=== PATIENT | male | born 1965 | race Caucasian/White ===

== ENCOUNTER 2020-04-09 22:39 | Inpatient (IN) | payer BC ==
[2020-04-09] VITALS (8 sets, daily range): BP systolic 143–189; BP diastolic 84–114
[~2020-04-09] VITALS: Ht 170.1 cm; Wt 80.9 kg
--- NOTE | 2020-04-09 23:04 | NUR ---
NURSE TO NURSE REPORT CODI OSORIO.
[2020-04-09 23:24] LABS: BASO # 0.1 10*3/uL (0.0-0.1); BASO % 0.9 % (0.0-1.0); EOS % 0.3 % (1.0-4.0); HEMATOCRIT 43.5 % (42.0-52.0); LYMPH % 15.3 % (27.0-41.0); MEAN CORPUSCULAR HGB 27.3 pg (27.0-31.0); MEAN CORPUSCULAR HGB CONC 35.9 g/dl (33.0-37.0); MEAN PLATELET VOLUME 9.7 fl (9.6-12.3); MONO # 0.4 10*3/uL (0.1-1.0); MONO % 6.4 % (3.0-9.0); NEUT # 4.9 10*3/uL (2.3-7.9); NEUT % 76.5 % (47.0-73.0); PLATELET COUNT AUTOMATED 231 10*3/uL (130-400); RED BLOOD COUNT 5.72 10*6/uL (4.50-5.90); RED CELL DISTRI WIDTH 11.8 % (0-14.5); WHITE BLOOD COUNT 6.4 10*3/uL (4.8-10.8)
[2020-04-09 23:39] LABS: ALBUMIN 3.2 gm/dl (3.1-4.5); ALKALINE PHOSPHATASE 74 U/L (45-117); BUN 21 mg/dl (7-24); CHLORIDE 100 mmol/L (98-107); CREATININE 1.32 mg/dL (0.70-1.30); LIPASE 945 U/L (73-393); POTASSIUM 4.1 mmol/L (3.5-5.1); SGOT/AST 28 IU/L (3-35); SGPT/ALT 49 U/L (12-78); SODIUM 133 mmol/L (136-145); TOTAL PROTEIN 7.1 gm/dL (6.4-8.2)
[2020-04-09 23:43] LABS: TROPONIN I < 0.015 ng/ml (<0.045)
[2020-04-10 00:05] LABS: BILIRUBIN NEGATIVE (NEGATIVE); BLOOD TRACE-INTACT (NEGATIVE); CLARITY CLEAR (CLEAR); COLOR YELLOW (YELLOW); GLUCOSE 3+ (NEGATIVE); KETONE NEGATIVE (NEGATIVE); LEUKO ESTERASE NEGATIVE (NEGATIVE); NITRITE NEGATIVE (NEGATIVE); SPECIFIC GRAVITY 1.015 (1.005-1.030); UROBILINOGEN 0.2 E.U./dl (0.2-1.0)
[2020-04-10 00:22] LABS: WBC 0-2 wbc/hpf (0-5)
[2020-04-10 00:25] VITALS: BP 152/88; BP 163/95
--- NOTE | 2020-04-10 00:25 | NUR ---
A 54, admitted to 5E, under the services of SHAAN Gonzalez DO with a diagnosis of HYPEROSMOLAR NON-KETOTIC STATE D/T TYPE 2 DIABETES, UNCONTROLLED HTN, CHRONIC PANCREATITIS. Chief complaint is NAUSEA/VOMITING/DIARRHEA, HYPERGLYCEMIA. Patient arrived via ambulatory from ER. Monitor applied. Initial assessment completed. Vital signs taken and recorded. SHAAN GONZALEZ DO notified of admission to the unit. Orders received. See assessment for past medical history, medications and allergies. Patient and/or family oriented to unit. [facility] visitation policy reviewed. Clothing/patient valuable form completed. MAVERICK SPAIN
[2020-04-10] MEDS ORDERED: ASPIRIN LITE C325 MG PO (00:44)
--- NOTE | 2020-04-10 00:45 | NUR ---
MED REC UP TO DATE PER PT RECALL.
--- NOTE | 2020-04-10 01:02 | NUR ---
IV MORPHINE ADMINISTERED PER PRN ORDER FOR C/O PAIN IN R SIDE ABDOMEN RATED 8/10. BSG ALSO CHECKED AT 0110-501. IV FLUID BOLUS INFUSING AT THIS TIME WITH APPROXIMATELY 800 CCs LEFT. WILL REEVALUATE WHEN BOLUS COMPLETE.
--- NOTE | 2020-04-10 01:37 | NUR ---
PT STATES EARLIER PAIN MEDICATION SOMEWHAT EFFECTIVE. RATES PAIN 6/10. WILL CONTINUE TO MONITOR. ORAL CONTRAST PROVIDED FOR CT SCAN ORDERED.
--- NOTE | 2020-04-10 02:34 | NUR ---
NOTIFIED OF BSG 476 FOLLOWING BOLUS ORDERED IN ER. INSTRUCTED TO GIVE SLIDING SCALE COVERAGE NON-SCHEDULED DOSE.
--- NOTE | 2020-04-10 02:43 | NUR ---
22 UNITS GIVEN PER SLIDING SCALE FOR BSG 476. PER [facility], PT TO HAVE TEST DONE AT 0300. WILL SEND PT TO CT AT THIS TIME.
--- NOTE | 2020-04-10 03:02 | NUR ---
PT TAKEN OFF FLOOR VIA WC FOR CT.
--- NOTE | 2020-04-10 03:15 | NUR ---
PT RETURNED TO FLOOR FROM CT. REQUESTED AND RECEIVED PO NORCO WITH SMALL SIPS OF WATER FOR C/O PAIN IN R ABDOMEN RATED 7/10. WILL MONITOR EFFECTIVENESS. CALL LIGHT IN REACH.
--- NOTE | 2020-04-10 03:15 | NUR ---
PT RETURNED TO FLOOR FROM CT. REQUESTED AND RECEIVED PO NORCO FOR C/O PAIN IN R ABDOMEN RATED 7/10. WILL MONITOR EFFECTIVENESS. CALL LIGHT IN REACH.
--- NOTE | 2020-04-10 04:10 | NUR ---
EARLIER MEDICATION APPEARS EFFECTIVE. PT ASLEEP IN BED. NO S/S OF DISTRESS NOTED. WILL MONITOR. CALL LIGHT IN REACH.
[2020-04-10 05:56] LABS: BASO % 0.5 % (0.0-1.0); EOS % 0.1 % (1.0-4.0); HEMATOCRIT 42.4 % (42.0-52.0); LYMPH # 1.3 10*3/uL (1.3-4.4); LYMPH % 15.3 % (27.0-41.0); MEAN CELL VOLUME 78.1 fl (80.0-94.0); MEAN CORPUSCULAR HGB 26.9 pg (27.0-31.0); MEAN CORPUSCULAR HGB CONC 34.4 g/dl (33.0-37.0); MONO # 0.6 10*3/uL (0.1-1.0); MONO % 6.3 % (3.0-9.0); NEUT # 6.7 10*3/uL (2.3-7.9); NEUT % 76.8 % (47.0-73.0); PLATELET COUNT AUTOMATED 234 10*3/uL (130-400); RED BLOOD COUNT 5.43 10*6/uL (4.50-5.90); RED CELL DISTRI WIDTH 11.9 % (0-14.5); WHITE BLOOD COUNT 8.7 10*3/uL (4.8-10.8)
[2020-04-10 06:00] LABS: BUN 18 mg/dl (7-24); CHLORIDE 104 mmol/L (98-107); CHOLESTEROL 286 mg/dL (<200); CREATININE 1.29 mg/dL (0.70-1.30); LIPASE 326 U/L (73-393); POTASSIUM 3.7 mmol/L (3.5-5.1); SODIUM 137 mmol/L (136-145); TRIGLYCERIDES 372 mg/dl (<150); VLDL CHOLESTEROL 74 mg/dL (6-40)
[2020-04-10 06:09] LABS: HDL CHOLESTEROL 48 mg/dl (40-60); LDL CHOLESTEROL 164 mg/dL (9-159); THYROID STIM HORMONE (HS) 0.751 uIU/ml (0.358-4.75)
[2020-04-10 06:53] LABS: VITAMIN D, 25-HYDROXY 21.8 ng/mL (30-100)
--- NOTE | 2020-04-10 07:29 | NUR ---
AWARE OF CT RESULTS.
--- NOTE | 2020-04-10 11:52 | NUR ---
Wrapper Layer And Examiner Soft Work in to talk to patient. Patient states lives at HOME with . There are 4 steps in the home. Physician: NONE AT THIS TIME Pharmacy: [facility] Home health services: NONE Patient's level of ADLs: INDEPENDENT Patient has working utilities: YES DME: NONE Follow-up physician's appointment after d/c: WILL BE MADE BY HOSPITALIST NURSE DIRECTOR ON DISCHARGE Does patient want to access PORTAL?: NO Discharge plan PT LIVES AT HOME AND IS INDEPENDENT IN HIS CARE. DENIES HE WILL HAVE ANY NEEDS AT DISCHARGE. PT CURRENTLY DOES NOT HAVE A PCP. INTERESTED IN [facility]. HOSPITALIST NURSE DIRECTOR INFORMED. PT HAS NOT BEEN TAKING ANY MEDS AT HOME DUE TO NO PCP TO FILL THEM. PLAN IS TO RETURN HOME WHEN MEDICALLY STABLE. STATES HIS WILL TAKE HIM HOME. WILL CONTINUE TO FOLLOW.. DIPESH JIMENEZ
[2020-04-10 12:00] VITALS: BP 136/90
[2020-04-10 16:00] VITALS: BP 133/94
[2020-04-10 20:00] VITALS: BP 152/89
[2020-04-11] VITALS (9 sets, daily range): BP systolic 85–158; BP diastolic 49–96
--- NOTE | 2020-04-11 04:07 | NUR ---
PT REQUESTED AND RECEIVED PO NORCO PER PRN ORDER FOR C/O PAIN IN R SIDE ABDOMEN RATED 7/10. WILL MONITOR EFFECTIVENESS. CALL LIGHT IN REACH.
--- NOTE | 2020-04-11 04:55 | NUR ---
EARLIER MEDICATION EFFECTIVE PER PT. WILL MONITOR. CALL LIGHT IN REACH.
[2020-04-11 06:52] LABS: BASO % 0.3 % (0.0-1.0); EOS # 0.1 10*3/uL (0.0-0.4); EOS % 1.1 % (1.0-4.0); HEMATOCRIT 38.4 % (42.0-52.0); LYMPH # 1.7 10*3/uL (1.3-4.4); LYMPH % 26.3 % (27.0-41.0); MEAN CELL VOLUME 79.3 fl (80.0-94.0); MEAN CORPUSCULAR HGB 27.3 pg (27.0-31.0); MEAN CORPUSCULAR HGB CONC 34.4 g/dl (33.0-37.0); MONO # 0.6 10*3/uL (0.1-1.0); MONO % 9.2 % (3.0-9.0); NEUT # 3.9 10*3/uL (2.3-7.9); NEUT % 62.8 % (47.0-73.0); PLATELET COUNT AUTOMATED 206 10*3/uL (130-400); RED BLOOD COUNT 4.84 10*6/uL (4.50-5.90); RED CELL DISTRI WIDTH 12.1 % (0-14.5); WHITE BLOOD COUNT 6.3 10*3/uL (4.8-10.8)
[2020-04-11 07:09] LABS: ALBUMIN 2.3 gm/dl (3.1-4.5); ALKALINE PHOSPHATASE 57 U/L (45-117); BUN 12 mg/dl (7-24); CHLORIDE 107 mmol/L (98-107); CREATININE 0.85 mg/dL (0.70-1.30); POTASSIUM 3.6 mmol/L (3.5-5.1); SGOT/AST 16 IU/L (3-35); SGPT/ALT 32 U/L (12-78); SODIUM 138 mmol/L (136-145); TOTAL PROTEIN 5.3 gm/dL (6.4-8.2)
[2020-04-11 07:12] LABS: CEA 6.8 ng/mL
--- NOTE | 2020-04-11 07:24 | NUR ---
GLUCOSE 218 ON AM LABS. BESIDE GLUCOSE NOT PREFORMED FOR THIS REASON.
--- NOTE | 2020-04-11 11:09 | NUR ---
BLOOD SUGAR NOT PERFORMED PT IS IN SURGERY.
--- NOTE | 2020-04-11 11:21 | NUR ---
PT CONTINUES TO DENY NEEDS WHEN DISCHARGED. WILL RETURN HOME WHEN MEDICALLY STABLE. WILL CONTINUE TO FOLLOW.
--- NOTE | 2020-04-11 11:36 | NUR ---
PATIENT GIVEN WIPES FOR ABDOMEN, SCD APPLIED
--- NOTE | 2020-04-11 17:40 | NUR ---
PT AWARE OF NEED TO STRAIN URINE. URINAL PROVIDED.
--- NOTE | 2020-04-11 19:38 | NUR ---
PATIENT RESTING IN BED WITH NO NEEDS MADE. DENIES PAIN. BED IN LOWEST POSITION, CALL LIGHT IN REACH
--- NOTE | 2020-04-11 23:45 | NUR ---
24 HR chart check completed.
[2020-04-12] VITALS: BP 134/75
--- NOTE | 2020-04-12 01:32 | NUR ---
PRN NORCO GIVEN FOR PT COMPLAINTS OF RIGHT SIDED ABDOMINAL PAIN RATING IT 7/10. CALL LIGHT WITHIN REACH, WILL MONITOR
[2020-04-12 05:54] LABS: BASO % 0.6 % (0.0-1.0); EOS # 0.1 10*3/uL (0.0-0.4); EOS % 1.8 % (1.0-4.0); HEMATOCRIT 37.8 % (42.0-52.0); LYMPH % 38.3 % (27.0-41.0); MEAN CELL VOLUME 80.4 fl (80.0-94.0); MEAN CORPUSCULAR HGB 27.2 pg (27.0-31.0); MEAN CORPUSCULAR HGB CONC 33.9 g/dl (33.0-37.0); MEAN PLATELET VOLUME 9.8 fl (9.6-12.3); MONO # 0.5 10*3/uL (0.1-1.0); MONO % 9.6 % (3.0-9.0); NEUT # 2.5 10*3/uL (2.3-7.9); NEUT % 49.1 % (47.0-73.0); PLATELET COUNT AUTOMATED 184 10*3/uL (130-400); RED CELL DISTRI WIDTH 11.9 % (0-14.5); WHITE BLOOD COUNT 5.1 10*3/uL (4.8-10.8)
[2020-04-12 06:23] LABS: BUN 14 mg/dl (7-24); CHLORIDE 106 mmol/L (98-107); CREATININE 0.74 mg/dL (0.70-1.30); LIPASE 183 U/L (73-393); POTASSIUM 3.5 mmol/L (3.5-5.1); SODIUM 137 mmol/L (136-145)
[2020-04-12 08:00] VITALS: BP 131/79
[2020-04-12] MEDS ORDERED: Lantus SC (10:21)
[2020-04-12] MEDS ORDERED: ASPIRIN ADULT L81 M1 PO (10:21)
[2020-04-12] MEDS ORDERED: GLUCOPHAGE500 M1 PO (10:21)
[2020-04-12] MEDS ORDERED: ATORVASTATIN CA20 M1 PO (10:21)
[2020-04-12] MEDS ORDERED: PANTOPRAZOLE SO40 MG PO (10:21)
[2020-04-12] MEDS ORDERED: Humalog SQ (10:21)
[2020-04-12] MEDS ORDERED: TAMSULOSIN HCL0.4 MG PO (10:21)
[2020-04-12] MEDS ORDERED: VITAMIN D350 MC2 PO (10:21)
--- NOTE | 2020-04-12 11:07 | NUR ---
Nutritional Support Services Note: Pt instructed on an 1800cal diabetic diet. Diet copy given to pt. Pt has been a diabetic for approximately 15 years. Has never complied with a diet. Eats candy bars and regular pop on a daily basis. Goes for long periods of time without eating. Stressed importance of three meals daily and a night snack. Encouraged healthy eating. Reviewed proper portion sizes and discussed risks of DM. Pt states he will give diet copy to his to help him. Encouraged follow up if needed. Beth Hardy Rdn Ld
[2020-04-12 12:00] VITALS: BP 135/93
--- NOTE | 2020-04-12 12:12 | NUR ---
CONTINUES TO DENY NEEDS ON DISCHARGE. WILL BE DISCHARGED TO HOME WHEN MEDICALLY STABLE. WILL CONTINUE TO FOLLOW
--- NOTE | 2020-04-12 13:00 | NUR ---
MASKS PROVIDED TO PATIENT TO WEAR TO FOLLOW UP CARE APPTS PER REQUEST FROM JEROMY THE HOSPITALIST NURSE.
--- NOTE | 2020-04-12 14:49 | NUR ---
PT DISCHARGED HOME AT THIS TIME. [place] REMOVED. FOLLOW UP CARE AND DISCHARGE INSTRUCTIONS DISCUSSED.
== END 2020-04-12 14:49 | disposition home or self-care (01) | DRG 438 ==
LOC: ED 22:39 → 5E 23:57 → EDHOLD 23:57 → 5E 04-10 00:13
PROVIDERS: Emergency Medicine; Internal Medicine; Student in an Organized Health Care Education/Training Program; ADMIT Internal Medicine
PROC: 0DB68ZX Excision of Stomach, Via Natural or Artificial Opening Endoscopic, Diagnostic (ICD-10-PCS; principal; 2020-04-11)
PROC: 0DB48ZX Excision of Esophagogastric Junction, Via Natural or Artificial Opening Endoscopic, Diagnostic (ICD-10-PCS; principal; 2020-04-11)
DX: K85.90 Acute pancreatitis without necrosis or infection, unspecified (principal); E11.00 Type 2 diabetes mellitus with hyperosmolarity without nonketotic hyperglycemic-hyperosmolar coma (NKHHC); E43 Unspecified severe protein-calorie malnutrition; N13.2 Hydronephrosis with renal and ureteral calculous obstruction; J98.11 Atelectasis; D18.09 Hemangioma of other sites; K86.1 Other chronic pancreatitis; N28.89 Other specified disorders of kidney and ureter; K44.9 Diaphragmatic hernia without obstruction or gangrene; I10 Essential (primary) hypertension; K21.0 Gastro-esophageal reflux disease with esophagitis; E78.1 Pure hyperglyceridemia; I25.10 Atherosclerotic heart disease of native coronary artery without angina pectoris; E78.5 Hyperlipidemia, unspecified; R00.0 Tachycardia, unspecified; D50.9 Iron deficiency anemia, unspecified; E11.65 Type 2 diabetes mellitus with hyperglycemia; Z91.19 Patient's noncompliance with other medical treatment and regimen; Z82.49 Family history of ischemic heart disease and other diseases of the circulatory system; Z68.27 Body mass index [BMI] 27.0-27.9, adult

== ENCOUNTER → 2020-04-19 | Outpatient (CLI) | payer BC ==
[~2020-04-19] MED LIST: ASPIRIN ADULT L81 M1 PO; ASPIRIN LITE C325 MG PO; ATORVASTATIN CA20 M1 PO; GLUCOPHAGE500 M1 PO; Humalog SQ; Lantus SC; PANTOPRAZOLE SO40 MG PO; TAMSULOSIN HCL0.4 MG PO; VITAMIN D350 MC2 PO
== END | disposition home or self-care (01) ==
LOC: RESCLI 00:27
DX: I10 Essential (primary) hypertension (principal); E11.65 Type 2 diabetes mellitus with hyperglycemia; K86.1 Other chronic pancreatitis; K44.9 Diaphragmatic hernia without obstruction or gangrene; E55.9 Vitamin D deficiency, unspecified; R42 Dizziness and giddiness; E78.5 Hyperlipidemia, unspecified; Z09 Encounter for follow-up examination after completed treatment for conditions other than malignant neoplasm; Z79.4 Long term (current) use of insulin; Z79.84 Long term (current) use of oral hypoglycemic drugs; Z79.899 Other long term (current) drug therapy; Z98.890 Other specified postprocedural states; Z87.891 Personal history of nicotine dependence

== ENCOUNTER → 2020-04-28 | Outpatient (CLI) | payer BC ==
[2020-04-28 15:10] LABS: ACT PARTIAL THROMBO TIME 25.1 SECONDS (20.0-32.1)
== END | disposition home or self-care (01) ==
LOC: LAB 14:17
PROVIDERS: Urology
DX: D40.0 Neoplasm of uncertain behavior of prostate (principal); N28.89 Other specified disorders of kidney and ureter

== ENCOUNTER → 2020-05-31 | Outpatient (CLI) | payer BC ==
[2020-05-31 17:01] LABS: BASO # 0.1 10*3/uL (0.0-0.1); BASO % 0.7 % (0.0-1.0); EOS # 0.1 10*3/uL (0.0-0.4); EOS % 1.5 % (1.0-4.0); HEMATOCRIT 44.1 % (42.0-52.0); LYMPH # 1.9 10*3/uL (1.3-4.4); LYMPH % 25.9 % (27.0-41.0); MEAN CELL VOLUME 78.8 fl (80.0-94.0); MEAN CORPUSCULAR HGB 26.8 pg (27.0-31.0); MEAN PLATELET VOLUME 9.3 fl (9.6-12.3); MONO # 0.5 10*3/uL (0.1-1.0); MONO % 6.4 % (3.0-9.0); NEUT # 4.7 10*3/uL (2.3-7.9); NEUT % 64.9 % (47.0-73.0); PLATELET COUNT AUTOMATED 281 10*3/uL (130-400); RED CELL DISTRI WIDTH 12.1 % (0-14.5); WHITE BLOOD COUNT 7.2 10*3/uL (4.8-10.8)
[2020-05-31 17:15] LABS: ALBUMIN 3.3 gm/dl (3.1-4.5); ALKALINE PHOSPHATASE 60 U/L (45-117); BUN 14 mg/dl (7-24); CHLORIDE 107 mmol/L (98-107); SGOT/AST 14 IU/L (3-35); SGPT/ALT 27 U/L (12-78); SODIUM 137 mmol/L (136-145); TOTAL PROTEIN 7.4 gm/dL (6.4-8.2)
[2020-05-31 17:19] LABS: BILIRUBIN, DIRECT 0.2 mg/dL (0.0-0.2); CEA 3.3 ng/mL
[2020-06-01 08:08] LABS: AFP TUMOR MARKER 1.3 ng/mL (0.0-8.3); HEP B CORE AB, IGM Negative (Negative); HEPATITIS B SURFACE AG Negative (Negative); HEPATITIS C VIRUS ANTIBODY <0.1 s/co (0.0-0.9)
[2020-06-01 09:10] LABS: CA 19-9 27 U/mL (0-35)
== END | disposition home or self-care (01) ==
LOC: LAB 16:45
PROVIDERS: Internal Medicine Gastroenterology
DX: R93.89 Abnormal findings on diagnostic imaging of other specified body structures (principal)

== ENCOUNTER → 2020-06-20 | Outpatient (CLI) | payer BC ==
[2020-06-20 12:04] LABS: IRON 73 ug/dL (65-175); TOTAL IRON BINDING CAPACITY 299 ug/dl (250-450)
[2020-06-20 12:33] LABS: FERRITIN 124.8 ng/mL (22.0-322.0)
== END ==
LOC: LAB 10:55
PROVIDERS: Internal Medicine Gastroenterology
DX: R63.4 Abnormal weight loss (principal); R10.9 Unspecified abdominal pain

== ENCOUNTER → 2021-02-07 | Outpatient (CLI) | payer BC ==
[2021-02-07 08:38] LABS: ALBUMIN 3.3 gm/dl (3.1-4.5); BUN 18 mg/dl (7-24); CHLORIDE 102 mmol/L (98-107); POTASSIUM 4.7 mmol/L (3.5-5.1); SODIUM 135 mmol/L (136-145)
[2021-02-07 08:41] LABS: ALKALINE PHOSPHATASE 61 U/L (45-117); CHOLESTEROL 248 mg/dL (<200); CREATININE 0.98 mg/dL (0.70-1.30); HDL CHOLESTEROL 55 mg/dl (40-60); SGOT/AST 12 IU/L (3-35); SGPT/ALT 28 U/L (12-78); TOTAL PROTEIN 7.4 gm/dL (6.4-8.2); TRIGLYCERIDES 416 mg/dl (<150)
[2021-02-07 08:55] LABS: VITAMIN D, 25-HYDROXY 29.1 ng/mL (30-100)
[2021-02-08 10:08] LABS: CREATININE,URINE 217.6 mg/dL (Not Estab.)
== END | disposition home or self-care (01) ==
LOC: LAB 07:34
PROVIDERS: ATTEND Internal Medicine Endocrinology, Diabetes & Metabolism
DX: E11.65 Type 2 diabetes mellitus with hyperglycemia (principal); E55.9 Vitamin D deficiency, unspecified; G62.9 Polyneuropathy, unspecified

== ENCOUNTER → 2021-04-17 | Outpatient (CLI) | payer BC | END | disposition home or self-care (01) | LOC: RESCLI 00:55 | PROVIDERS: ATTEND Family Medicine | DX: E11.65 Type 2 diabetes mellitus with hyperglycemia (principal); E11.40 Type 2 diabetes mellitus with diabetic neuropathy, unspecified; E78.2 Mixed hyperlipidemia; I10 Essential (primary) hypertension; E55.9 Vitamin D deficiency, unspecified; Z79.82 Long term (current) use of aspirin; Z79.84 Long term (current) use of oral hypoglycemic drugs; Z79.899 Other long term (current) drug therapy; Z72.0 Tobacco use ==

== ENCOUNTER → 2021-10-02 | Outpatient (CLI) | payer BC ==
[2021-10-02 12:09] LABS: BASO % 0.6 % (0.0-1.0); EOS # 0.1 10*3/uL (0.0-0.4); EOS % 0.9 % (1.0-4.0); HEMATOCRIT 46.5 % (42.0-52.0); LYMPH # 1.5 10*3/uL (1.3-4.4); LYMPH % 22.9 % (27.0-41.0); MEAN CELL VOLUME 81.3 fl (80.0-94.0); MEAN CORPUSCULAR HGB 26.9 pg (27.0-31.0); MEAN CORPUSCULAR HGB CONC 33.1 g/dl (33.0-37.0); MEAN PLATELET VOLUME 9.6 fl (9.6-12.3); MONO # 0.5 10*3/uL (0.1-1.0); MONO % 7.3 % (3.0-9.0); NEUT # 4.5 10*3/uL (2.3-7.9); PLATELET COUNT AUTOMATED 213 10*3/uL (130-400); RED BLOOD COUNT 5.72 10*6/uL (4.50-5.90); RED CELL DISTRI WIDTH 12.4 % (0-14.5); WHITE BLOOD COUNT 6.6 10*3/uL (4.8-10.8)
[2021-10-02 12:15] LABS: BILIRUBIN Negative (Negative); BLOOD Trace-Intact (Negative); CLARITY Clear (Clear); COLOR Yellow (Yellow); GLUCOSE 3+ (Negative); KETONE Negative (Negative); LEUKO ESTERASE Negative (Negative); NITRITE Negative (Negative); SPECIFIC GRAVITY >= 1.030 (1.001-1.030); UROBILINOGEN 0.2 E.U./dl (0.0-1.0)
[2021-10-02 12:25] LABS: ALBUMIN 3.3 gm/dl (3.1-4.5); BUN 20 mg/dl (7-24); CHLORIDE 106 mmol/L (98-107); CREATININE 1.13 mg/dL (0.70-1.30); IRON 74 ug/dL (65-175); POTASSIUM 4.4 mmol/L (3.5-5.1); SODIUM 138 mmol/L (136-145); TOTAL IRON BINDING CAPACITY 312 ug/dl (250-450)
[2021-10-02 12:28] LABS: URINE CREATININE RANDOM 40.3 mg/dL
[2021-10-02 13:17] LABS: FERRITIN 105.4 ng/mL (22.0-322.0); VITAMIN D, 25-HYDROXY 39.4 ng/mL (30-100)
[2021-10-02 13:18] LABS: PTH INTACT 24.5 pg/mL (18.5-88.0)
[2021-10-02 14:22] LABS: BACTERIA TRACE; WBC 0-2 wbc/hpf (0-5)
== END | disposition home or self-care (01) ==
LOC: LAB 11:38
PROVIDERS: ATTEND Internal Medicine Nephrology
DX: E11.21 Type 2 diabetes mellitus with diabetic nephropathy (principal); E11.22 Type 2 diabetes mellitus with diabetic chronic kidney disease; N18.2 Chronic kidney disease, stage 2 (mild); D63.1 Anemia in chronic kidney disease; N25.81 Secondary hyperparathyroidism of renal origin

== ENCOUNTER → 2021-12-05 | Outpatient (CLI) | payer BC ==
[2021-12-05 10:47] LABS: BASO # 0.1 10*3/uL (0.0-0.1); BASO % 0.8 % (0.0-1.0); EOS % 0.6 % (1.0-4.0); HEMATOCRIT 47.5 % (42.0-52.0); LYMPH # 1.5 10*3/uL (1.3-4.4); LYMPH % 24.5 % (27.0-41.0); MEAN CELL VOLUME 81.3 fl (80.0-94.0); MEAN CORPUSCULAR HGB 27.1 pg (27.0-31.0); MEAN CORPUSCULAR HGB CONC 33.3 g/dl (33.0-37.0); MONO # 0.4 10*3/uL (0.1-1.0); MONO % 6.5 % (3.0-9.0); NEUT # 4.1 10*3/uL (2.3-7.9); PLATELET COUNT AUTOMATED 209 10*3/uL (130-400); RED BLOOD COUNT 5.84 10*6/uL (4.50-5.90); RED CELL DISTRI WIDTH 12.6 % (0-14.5); WHITE BLOOD COUNT 6.2 10*3/uL (4.8-10.8)
[2021-12-05 10:52] LABS: BILIRUBIN Negative (Negative); BLOOD Negative (Negative); CLARITY Clear (Clear); COLOR Yellow (Yellow); GLUCOSE 3+ (Negative); KETONE Negative (Negative); LEUKO ESTERASE Negative (Negative); NITRITE Negative (Negative); SPECIFIC GRAVITY >= 1.030 (1.001-1.030); UROBILINOGEN 0.2 E.U./dl (0.0-1.0)
[2021-12-05 10:59] LABS: URINE CREATININE RANDOM 64.7 mg/dL
[2021-12-05 11:03] LABS: ALBUMIN 3.7 gm/dl (3.1-4.5); BUN 33 mg/dl (7-24); CHLORIDE 100 mmol/L (98-107); CREATININE 1.38 mg/dL (0.70-1.30); IRON 102 ug/dL (65-175); POTASSIUM 4.5 mmol/L (3.5-5.1); SODIUM 135 mmol/L (136-145); TOTAL IRON BINDING CAPACITY 319 ug/dl (250-450)
[2021-12-05 11:49] LABS: FERRITIN 162.6 ng/mL (22.0-322.0)
[2021-12-05 12:25] LABS: VITAMIN D, 25-HYDROXY 48.1 ng/mL (30-100)
[2021-12-05 12:43] LABS: EPITHELIAL CELLS 0-2; WBC 0-2 wbc/hpf (0-5)
== END | disposition home or self-care (01) ==
LOC: LAB 10:21
PROVIDERS: ATTEND Internal Medicine Nephrology
DX: E11.21 Type 2 diabetes mellitus with diabetic nephropathy (principal); N18.2 Chronic kidney disease, stage 2 (mild); D63.1 Anemia in chronic kidney disease; N25.81 Secondary hyperparathyroidism of renal origin

== ENCOUNTER → 2021-12-11 | Outpatient (CLI) | payer BC | END | disposition home or self-care (01) | LOC: RESCLI 01:32 | PROVIDERS: ATTEND Student in an Organized Health Care Education/Training Program | DX: E11.65 Type 2 diabetes mellitus with hyperglycemia (principal); E11.40 Type 2 diabetes mellitus with diabetic neuropathy, unspecified; I10 Essential (primary) hypertension; E55.9 Vitamin D deficiency, unspecified; E78.5 Hyperlipidemia, unspecified; I25.10 Atherosclerotic heart disease of native coronary artery without angina pectoris; Z79.82 Long term (current) use of aspirin; Z79.84 Long term (current) use of oral hypoglycemic drugs; Z79.899 Other long term (current) drug therapy; Z98.890 Other specified postprocedural states ==

== ENCOUNTER → 2021-12-12 | Outpatient (CLI) | payer BC ==
[2021-12-12 08:25] LABS: BASO # 0.1 10*3/uL (0.0-0.1); BASO % 0.6 % (0.0-1.0); EOS # 0.1 10*3/uL (0.0-0.4); EOS % 0.7 % (1.0-4.0); HEMATOCRIT 44.5 % (42.0-52.0); LYMPH # 1.4 10*3/uL (1.3-4.4); LYMPH % 16.9 % (27.0-41.0); MEAN CORPUSCULAR HGB 27.2 pg (27.0-31.0); MEAN CORPUSCULAR HGB CONC 33.9 g/dl (33.0-37.0); MEAN PLATELET VOLUME 9.6 fl (9.6-12.3); MONO # 0.8 10*3/uL (0.1-1.0); MONO % 9.4 % (3.0-9.0); NEUT % 71.9 % (47.0-73.0); PLATELET COUNT AUTOMATED 183 10*3/uL (130-400); RED BLOOD COUNT 5.56 10*6/uL (4.50-5.90); RED CELL DISTRI WIDTH 12.5 % (0-14.5); WHITE BLOOD COUNT 8.3 10*3/uL (4.8-10.8)
[2021-12-12 08:40] LABS: ALBUMIN 3.6 gm/dl (3.1-4.5); ALKALINE PHOSPHATASE 60 U/L (45-117); BUN 20 mg/dl (7-24); CHLORIDE 103 mmol/L (98-107); CHOLESTEROL 172 mg/dL (<200); LDL CHOLESTEROL 60 mg/dL (9-159); POTASSIUM 4.2 mmol/L (3.5-5.1); SGOT/AST 16 IU/L (3-35); SGPT/ALT 34 U/L (12-78); SODIUM 137 mmol/L (136-145); TOTAL PROTEIN 7.5 gm/dL (6.4-8.2); TRIGLYCERIDES 307 mg/dl (<150)
== END | disposition home or self-care (01) ==
LOC: RAD 07:56
PROVIDERS: Hospitalist; ATTEND Student in an Organized Health Care Education/Training Program
DX: E11.65 Type 2 diabetes mellitus with hyperglycemia (principal)

== ENCOUNTER → 2022-02-11 | Outpatient (CLI) | payer BC | END | disposition home or self-care (01) | LOC: US 09:10 | PROVIDERS: ATTEND Urology | DX: N28.1 Cyst of kidney, acquired (principal); R33.9 Retention of urine, unspecified ==

== ENCOUNTER → 2022-02-12 | Outpatient (CLI) | payer BC | END | disposition home or self-care (01) | LOC: RESCLI 00:30 | PROVIDERS: ATTEND Internal Medicine | DX: E11.65 Type 2 diabetes mellitus with hyperglycemia (principal); E55.9 Vitamin D deficiency, unspecified; E78.5 Hyperlipidemia, unspecified; I25.10 Atherosclerotic heart disease of native coronary artery without angina pectoris; G62.9 Polyneuropathy, unspecified; I11.9 Hypertensive heart disease without heart failure; Z79.4 Long term (current) use of insulin; Z79.899 Other long term (current) drug therapy; Z79.82 Long term (current) use of aspirin ==

== ENCOUNTER → 2023-02-03 | Outpatient (CLI) | payer BC ==
[2023-02-03 15:44] LABS: BASO # 0.1 10*3/uL (0.0-0.1); BASO % 0.8 % (0.0-1.0); EOS # 0.1 10*3/uL (0.0-0.4); EOS % 1.1 % (1.0-4.0); HEMATOCRIT 49.3 % (42.0-52.0); LYMPH # 1.5 10*3/uL (1.3-4.4); LYMPH % 24.4 % (27.0-41.0); MEAN CELL VOLUME 79.8 fl (80.0-94.0); MEAN CORPUSCULAR HGB 27.2 pg (27.0-31.0); MEAN CORPUSCULAR HGB CONC 34.1 g/dl (33.0-37.0); MEAN PLATELET VOLUME 9.2 fl (9.6-12.3); MONO # 0.5 10*3/uL (0.1-1.0); MONO % 7.5 % (3.0-9.0); NEUT # 4.1 10*3/uL (2.3-7.9); NEUT % 65.1 % (47.0-73.0); PLATELET COUNT AUTOMATED 237 10*3/uL (130-400); RED BLOOD COUNT 6.18 10*6/uL (4.50-5.90); RED CELL DISTRI WIDTH 12.2 % (0-14.5); WHITE BLOOD COUNT 6.3 10*3/uL (4.8-10.8)
[2023-02-03 16:29] LABS: ALKALINE PHOSPHATASE 64 U/L (46-116); BUN 15 mg/dl (9-23); CHLORIDE 99 mmol/L (98-107); CHOLESTEROL 318 mg/dL (<200); LDL CHOLESTEROL 189 mg/dL (9-159); POTASSIUM 4.5 mmol/L (3.4-5.1); SGPT/ALT 27 U/L (10-49); TRIGLYCERIDES 337 mg/dl (<150)
[2023-02-03 16:43] LABS: VITAMIN D, 25-HYDROXY 25.3 ng/mL (30-100)
== END | disposition home or self-care (01) ==
LOC: RESCLI 00:06
PROVIDERS: Student in an Organized Health Care Education/Training Program; ATTEND Family Medicine
DX: E11.65 Type 2 diabetes mellitus with hyperglycemia (principal); I10 Essential (primary) hypertension; E78.5 Hyperlipidemia, unspecified; K21.9 Gastro-esophageal reflux disease without esophagitis; Z98.890 Other specified postprocedural states; Z82.49 Family history of ischemic heart disease and other diseases of the circulatory system; Z79.82 Long term (current) use of aspirin; Z79.899 Other long term (current) drug therapy

== ENCOUNTER 2023-08-25 10:00 | Emergency (ER) | payer BC ==
[~2023-08-25] VITALS: Ht 170.1 cm; Wt 86.2 kg
[2023-08-25] MEDS ORDERED: CIPROFLOXACIN H10 ML OPH (10:17)
== END 2023-08-25 11:35 | disposition home or self-care (01) ==
LOC: ED 10:00
DX: H10.9 Unspecified conjunctivitis (principal); H54.7 Unspecified visual loss; K21.9 Gastro-esophageal reflux disease without esophagitis; E11.9 Type 2 diabetes mellitus without complications; I10 Essential (primary) hypertension; E78.00 Pure hypercholesterolemia, unspecified; Z98.890 Other specified postprocedural states